=== PATIENT | male | born 1960 | race Caucasian/White ===

== ENCOUNTER 2018-09-21 11:33 | Day surgery (SDC) | payer OTHER ==
[2018-09-21] MEDS: CEFAZOLIN 2 GM/50 ML (PMX) 50 ML (FOR WT < 120 KG) IVPB (08:00)
[2018-09-21] MEDS: metroNIDAZOLE 500 MG/NS (PMX) 100 ML IVPB (08:00)
[~2018-09-21 11:33] MED LIST: LACTATED RINGER'S 1,000 ML IV; PROPOFOL 200 MG INJ; ROCURONIUM 50 MG INJ; SOD CHLORIDE 0.9% 1,000 ML IV
[2018-09-21 12:51] LABS: ADD MAN DIFF? NO
[2018-09-21 12:53] LABS: BASOPHILS % 0.4 % (0.0-2.0); EOSINOPHILS # 0.1 10^3/ul (0.0-0.5); EOSINOPHILS % 0.7 % (0.0-7.0); HEMATOCRIT 42.8 % (42.0-52.0); HEMOGLOBIN 14.9 g/dl (14.0-18.0); LYMPHOCYTES # 2.3 10^3/ul (0.8-2.9); MEAN CORPUSCULAR HEMOGLOBIN 29.7 pg (29.0-33.0); MEAN CORPUSCULAR HGB CONC 34.8 g/dl (32.0-37.0); MEAN CORPUSCULAR VOLUME 85.3 fl (82.0-101.0); MEAN PLATELET VOLUME 9.7 fl (7.4-10.4); MONOCYTE # 0.7 10^3/ul (0.3-0.9); MONOCYTES % 8.2 % (0.0-11.0); NEUTROPHIL # 5.8 10^3/ul (1.6-7.5); NEUTROPHILS % 64.3 % (39.0-77.0); PLATELET COUNT 234 10^3/UL (140-415); RED BLOOD COUNT 5.02 10^6/ul (4.70-6.10); RED CELL DISTRIBUTION WIDTH 13.2 % (11.5-14.5)
[2018-09-21 13:10] LABS: ALANINE AMINOTRANSFERASE 34 IU/L (13-69); ALBUMIN/GLOBULIN RATIO 1.33; ALKALINE PHOSPHATASE 71 IU/L (42-121); ANION GAP 5 (5-13); ASPARTATE AMINO TRANSFERASE 22 IU/L (15-46); BILIRUBIN,INDIRECT 0.7 mg/dl (0-1.1); BILIRUBIN,TOTAL 0.7 mg/dl (0.2-1.3); BLOOD UREA NITROGEN 15 mg/dl (7-20); CALCIUM 8.5 mg/dl (8.4-10.2); CARBON DIOXIDE 31 mmol/L (21-31); CHLORIDE 105 mmol/L (97-110); CREATININE 0.87 mg/dl (0.61-1.24); Estimated GFR > 60 mL/min (>60); GLUCOSE 91 mg/dl (70-220); POTASSIUM 3.5 mmol/L (3.5-5.1); SODIUM 141 mmol/L (135-144)
[2018-09-21 13:11] LABS: INR 0.94; PROTIME 12.7 Sec (11.9-14.9)
[2018-09-21 13:12] LABS: PARTIAL THROMBOPLASTIN TIME 26.5 Sec (23.0-35.0)
[2018-09-21] MEDS ORDERED: LIDOCAINE 2% (SDV) 5 ML INJ (13:49)
[2018-09-21] MEDS ORDERED: PROPOFOL 20 ML (13:50)
[2018-09-21] MEDS ORDERED: SUCCINYLCHOLINE CHLORIDE 100 MG/5 ML SYG IV (13:50)
[2018-09-21] MEDS ORDERED: MIDAZOLAM 1 MG/ML 2 ML INJ (13:50)
[2018-09-21] MEDS ORDERED: OXYCODONE/ACETAMINOPHEN (5/325) TAB PO ×2 (14:00→15:30)
[2018-09-21] MEDS ORDERED: ONDANSETRON 4 MG INJ IV (14:00)
[2018-09-21] MEDS ORDERED: MEPERIDINE 25 MG INJ IV (14:00)
[2018-09-21] MEDS ORDERED: FENTAnyl 50 MCG/ML VIAL IV (14:00)
[2018-09-21] MEDS ORDERED: PROCHLORPERAZINE 10 MG INJ IV (14:00)
[2018-09-21] MEDS ORDERED: HYDROmorphONE 1 MG/5 ML IV SYRINGE IV ×2 (14:00)
[2018-09-21] MEDS ORDERED: DIPHENHYDRAMINE 50 MG INJ IV (14:00)
[2018-09-21] MEDS ORDERED: CEFAZOLIN 1 GM INJ (14:04)
[2018-09-21] MEDS ORDERED: metroNIDAZOLE 500 MG/NS (PMX) 100 ML IVPB (14:04)
[2018-09-21] MEDS ORDERED: FENTAnyl 50 MCG/ML VIAL (14:05)
[2018-09-21] MEDS ORDERED: ONDANSETRON 4 MG INJ (14:11)
[2018-09-21] MEDS ORDERED: DEXAMETHASONE 4 MG/ML 5 ML INJ (14:11)
[2018-09-21] MEDS ORDERED: FAMOTIDINE 20 MG INJ (14:11)
[2018-09-21] MEDS ORDERED: HYDROmorphONE 2 MG/ML SYG (14:36)
[2018-09-21] MEDS: LIDOCAINE 1% (MPF) 30 ML INJ (14:39)
[2018-09-21] MEDS: BUPIVACAINE 0.5%/EPI (SDV) 30 ML INJ (14:39)
[2018-09-21] MEDS ORDERED: SUGAMMADEX SODIUM 200 MG/2 ML VIAL IV (14:55)
[2018-09-21] MEDS ORDERED: hydrALAzine 20 MG INJ (15:11)
[2018-09-21] MEDS: hydrALAzine 20 MG INJ IV ×3 (15:29→15:50)
[2018-09-21] MEDS: LABETALOL HCL 20MG INJ IV (16:00)
[2018-09-21] MEDS: HYDROmorphONE 1 MG/5 ML IV SYRINGE IV (16:10)
== END 2018-09-21 17:05 | disposition home or self-care (01) ==
LOC: GIL 11:33 → SDS 11:33 → GIL 17:05
DX: Z86.010 Personal history of colon polyps (principal); I10 Essential (primary) hypertension; E78.5 Hyperlipidemia, unspecified; E66.01 Morbid (severe) obesity due to excess calories; Z68.39 Body mass index [BMI] 39.0-39.9, adult
CPT/HCPCS: 45378; 80053; 85025; 85610; 85730; 88304